=== PATIENT | male | born 1945 | race Caucasian/White ===

== ENCOUNTER 2022-07-24 13:46 | Emergency (ER) | payer MEDICARE, OTHER, SELFPAY ==
--- NOTE | ~2022-07-24 | CT_ITS ---
EXAMINATION: CT abdomen pelvis w con DATE: 07/24/2022 18:45 INDICATION: Suprapubic and left lower quadrant abdominal pain. Constipation and inability to urinate. TECHNIQUE: Computed tomography (CT) of the abdomen and pelvis was performed with 100 mL Omnipaque-350 intravenous contrast. Automated exposure control and iterative reconstruction technique were employe d. The dose-length product was 261.31 mGy-cm. COMPARISON: None FINDINGS: Mild emphysema in the visualized lower lungs. Linear bands of discoid atelectasis/scarring in the christen ateral lower lobes, right middle lobe and lingula. 9 mm nodule in the right upper lobe at the interse ction of the major and minor fissures. No pneumonia, pulmonary edema or pleural effusion. Heart size is normal. Atherosclerotic coronary artery calcific location. No pericardial effusion. Liver, gallbla dder, spleen and left adrenal gland are normal. 1.2 cm right adrenal nodule statistically most likely to represent an adenoma. 1.2 cm cyst at the upper pole of the left kidney. Small region of cortical scarring at the upper pole the left kidney likely sequela of prior infection or infarction. There is calcified atherosclerosis of the aorta and many of the other arteries. Patent aortobifemoral bypass g raft with occlusion of the bilateral common iliac arteries. Bladder is normal. Prostatomegaly measuri ng 4.2 x 2.9 cm. Large amount of stool throughout the transverse colon with small amount of fluid in the ascending colon. No abnormal bowel wall thickening or obstruction. Normal appendix. No free intra peritoneal gas or fluid. No pathologically enlarged abdominal or pelvic lymphadenopathy. Disc height loss, moderate at L4-L5 and severe with sclerotic degenerative endplate changes at L5-S1. IMPRESSION: 1. No acute intra-abdominal/pelvic process. 2. Prostatomegaly. 3. Mild emphysema with indeterminate 9 mm right upper lobe nodule. Correlate with any prior outside i maging to document stability. Otherwise would recommend further evaluation with either PET/CT or foll ow-up chest CT in 3 months. 4. 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 Reviewed, dictated and finalized at location A. IMPRESSION: 1. No acute intra-abdominal/pelvic process. 2. Prostatomegaly. 3. Mild emphysema with indeterminate 9 mm right upper lobe nodule. Correlate wi th any prior outside imaging to document stability. Otherwise would recommend f urther evaluation with either PET/CT or follow-up chest CT in 3 months. 4. 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
[2022-07-24 13:51] VITALS: BP 129/77; PULSE 95; RESP 16; TEMP 37.5; O2SAT 95
--- NOTE | 2022-07-24 17:33 | ED.GENADULT ---
HPI - General Adult General Chief complaint: Urogenital-Male Stated complaint: constipation X1 week. unable to urinate Time Seen by Provider: 07/24/22 16:59 Source: patient Mode of arrival: ambulatory Limitations: no limitations History of Present Illness HPI narrative: Patient is a 77 y/o male who presents to the ED with c/o constipation and difficulty urinating. Patient reports having difficulty with constipation over the last 1 week. He has been using laxatives at home with minimal relief. Last bowel movement was last night which he states was liquid, no passage of formed stool. He complains of slight pain in his lower abdomen. Today, he also reports having difficulty urinating. He denies any recent dysuria or hematuria. Last urination last night. Patient denies any nausea, vomiting, rectal bleeding, fevers. Related Data Allergies Allergy/AdvReac Type Severity Reaction Status Date / Time No Known Allergies Allergy Verified 07/24/22 20:09 Review of Systems Review of Systems: CONSTITUTIONAL: Denies fever, chills, or sweats. CARDIOVASCULAR: Denies chest pain. RESPIRATORY: Denies dyspnea. GASTROINTESTINAL: Reports lower abdominal pain, constipation, diarrhea. Denies rectal bleeding, nausea, vomiting. GENITOURINARY: Reports difficulty urinating. Denies dysuria or hematuria. All systems reviewed & are unremarkable except as noted in HPI and below PMFSH Past Medical History Medical History (Updated 07/25/22 @ 01:41 by Kareen Hubbard PA-C) COPD (chronic obstructive pulmonary disease) Hypothyroidism Parkinsons disease Pulmonary nodule Surgical History Surgical History (Updated 07/25/22 @ 00:24 by Kareen Hubbard PA-C) Hx of extremity bypass graft Social History Social History (Updated 07/25/22 @ 00:20 by Kareen Hubbard PA-C) Smoking status: Former smoker Exam Narrative: GENERAL: Well appearing, well-nourished, non-toxic, in no acute distress. HEAD: Normocephalic, atraumatic. NECK: Supple. No adenopathy, no masses. RESPIRATORY: Airway patent, respirations nonlabored. Clear to auscultation bilaterally, no rales, rhonchi, wheezing. Coarse breath sounds. CARDIOVASCULAR: Regular rate and rhythm without murmurs, rubs, or gallops. Peripheral pulses 2+ and equal bilaterally. ABDOMINAL: Soft, tenderness to palpation in lower abdomen, worse in left lower quadrant and suprapubic region. Nondistended, no hepatosplenomegaly. Normoactive BS. MUSCULOSKELETAL: Moves all extremities. Strength/ROM intact without gross deformities. SKIN: Warm, dry, normal color. No rashes. NEURO: A&O X3. Speech clear. Cranial nerves II-XII grossly intact. Steady gait. No ataxic movements. PSYCHIATRIC: Appropriate mood and affect. Normal interaction. Course Vital Signs Vital signs: Vital Signs Temperature 99.5 F 07/24/22 13:51 Pulse Rate 95 07/24/22 13:51 Respiratory Rate 16 07/24/22 13:51 Blood Pressure 129/77 07/24/22 13:51 Pulse Oximetry 95 07/24/22 13:51 Oxygen Delivery Room Air 07/24/22 13:51 Temperature 99.5 F 07/24/22 13:51 Pulse Rate 63 07/24/22 22:53 Respiratory Rate 18 07/24/22 22:53 Blood Pressure 150/80 H 07/24/22 22:53 Pulse Oximetry 95 07/24/22 22:53 Oxygen Delivery Room Air 07/24/22 13:51 Medical Decision Making MDM Narrative Medical decision making narrative: Patient presented to ED with report of constipation and acute urinary retention. Vital signs stable upon arrival. ED bladder scanner unavailable currently, though patient was straight cathed upon arrival and had several hundred mL of urine drained with relief. UA without signs of infection. Laboratory evaluation unremarkable. Good kidney function. CT scan of abdomen pelvis revealed a large amount of stool in the colon, but no abnormal wall thickening, obstruction, diverticulitis, or other acute intra-abdominal findings. Did also show enlarged prostate. Patient given soapsuds enema in the ED and
[2022-07-24 18:11] LABS: Basophils Percent Auto 0.5 % (0.2-1.2); Eosinophils Absolute Auto 0.1 K/mm3 (0-0.3); Eosinophils Percent Auto 0.8 % (0-4.4); Hemoglobin 16.8 g/dL (14.0-18.0); Immature Granulocyte Absolute 0.01 K/mm3 (0.00-0.031); Immature Granulocyte Percent A 0.1 % (0-0.5); Lymphocytes Absolute Auto 2.45 K/mm3 (0.9-3.2); Lymphocytes Percent Auto 33.7 % (18.3-44.2); Mean Corpuscular HGB Conc 33.6 g/dl (32-36); Mean Corpuscular Hemoglobin 31.8 pg (26-34); Mean Corpuscular Volume 94.5 fl (80-100); Mean Platelet Volume 10.1 fl (7.4-10.4); Monocytes Absolute Auto 0.8 K/mm3 (0.1-0.6); Monocytes Percent Auto 11.4 % (2.6-8.5); Neutrophils Absolute Auto 3.9 K/mm3 (1.3-6.7); Neutrophils Percent Auto 53.5 % (45.5-73.1); Platelet Count Result 215 k/mm3 (150-375); Red Blood Count 5.29 M/mm3 (4.6-6.20); White Blood Count 7.3 K/mm3 (4.5-10.0)
[2022-07-24 18:19] LABS: Appearance Urine Clear (Clear); Bilirubin Urine Negative (Negative); Blood Urine Negative (Negative); Color Urine Yellow (Yellow); Glucose Urine UA Negative (Negative); Ketones Urine Trace mg/dL (Negative); Leukocyte Esterase Ur Negative LEU/UL (Negative); Nitrate Urine Negative (Negative); Protein Urine Trace mg/dL (Negative); Urobilinogen Urine 0.2 mg/dL (<2.0)
[2022-07-24 18:20] LABS: Alanine Aminotransferase 7 U/L (6-50); Albumin Level 4.6 g/dL (3.5-5.1); Alkaline Phosphatase 63 U/L (38-126); Anion Gap 12 mmol/L (8-16); Aspartate Amino Transferase 20 U/L (17-59); Bilirubin,Total 0.5 mg/dL (0.2-1.3); Blood Urea Nitrogen 17 mg/dL (9-20); Calcium 9.4 mg/dL (8.4-10.2); Carbon Dioxide 30 mmol/L (22-30); Chloride 98 mmol/L (98-107); Estimated CRCL calculation 57 ml/min; Estimated Glomerular Filt Rate > 60; Glucose 111 mg/dL (65-110); Lipase 73 U/L (23-300); Potassium 4.3 mmol/L (3.4-5.0); Sodium 140 mmol/L (137-145)
[2022-07-24 18:27] LABS: Bacteria Urine Trace /hpf; Mucus Urine Rare /lpf; RBC Urine 0-2 /hpf (0-2); WBC Urine 0-3 /hpf
[2022-07-24 18:33] LABS: Add Urine Microscopic? YES
[2022-07-24] MEDS: SODIUM CHLORIDE 0.9% IV 1,000 ML 999 ML IV CONT (20:10)
[2022-07-24 22:53] VITALS: BP 150/80; PULSE 63; RESP 18; O2SAT 95
== END 2022-07-24 22:53 | disposition home or self-care (01) ==
PROVIDERS: Physician Assistant; Emergency Provider Emergency Medicine
DX: K59.00 Constipation, unspecified (principal); R33.9 Retention of urine, unspecified; J44.9 Chronic obstructive pulmonary disease, unspecified; E03.9 Hypothyroidism, unspecified; G20 Parkinson's disease; Z87.891 Personal history of nicotine dependence
CPT/HCPCS: 36415; 51701; 74177; 80053; 81001; 83690; 85025; 96360; 99284; J7030; Q9967